=== PATIENT | female | born 1985 | race Two or more races ===

== ENCOUNTER → 2018-04-07 | Outpatient (CLI) | payer MEDICAID ==
--- NOTE | 2018-04-07 13:12 | RADIOLOGY IMAGING REPORT ---
[place] [facility] [place] NAME: Leigh Wesley : 1985 MR: [id number] V: [id number] EXAM DATE: ORDERING PHYSICIAN: JASSON CUBA TECHNOLOGIST: Location: [facility] Patient: Leigh Wesley : 1985 Visit/Account:[id number] Date of Sevice: 04/07/2018 GALLBLADDER HISTORY: 37 weeks , right upper quadrant pain, elevated LFTs, nausea and vomiting, gestation al diabetes COMPARISON: None. FINDINGS: Gallbladder: Several tiny echogenic foci are seen within the gallbladder. These could represent tiny stones or sludge. There was a positive Lew sign by technologist notation. The gallbladder wall did not appear thickened and there is no evidence of pericholecystic fluid Liver: Diffuse increased echogenicity throughout liver which can be seen with fatty infiltration or o ther infiltrative process Common duct: Normal, 3.4 mm diameter. Pancreas: Obscured by bowel gas Right kidney: There is a mild right hydronephrosis. The right kidney measures 10 cm in length Upper abdominal aorta and IVC: Patent. Ascites: None visualized. IMPRESSION: Increased echogenicity throughout liver which can be seen with fatty infiltration or other infiltrati ve process Tiny echogenic foci within the gallbladder could represent tiny stones or sludge. There was a positi ve Lew sign by technologist notation. No evidence of biliary ductal dilatation or gallbladder wal l thickening. Mild right hydronephrosis Report Dictated By: Emily Lee MD at 04/07/2018 1:05 PM Report E-Signed By: Emily Lee MD at 04/07/2018 1:08 PM WSN:ILIA
== END ==
LOC: US 10:13
PROVIDERS: ATTEND Obstetrics & Gynecology
DX: K76.0 Fatty (change of) liver, not elsewhere classified (principal); R19.8 Other specified symptoms and signs involving the digestive system and abdomen; N13.30 Unspecified hydronephrosis
CPT/HCPCS: 76705

== ENCOUNTER 2018-04-19 19:25 | Inpatient (IN) | payer MEDICAID ==
[~2018-04-19] VITALS: Ht 175.3 cm; Wt 69.4 kg
[2018-04-19] MEDS ORDERED: fentaNYL CITR 100 MCG/2 ML AMP IVP PRN (19:30)
[2018-04-19] MEDS ORDERED: LIDOCAINE 1% LOCAL 300 MG/30ML INJ PRN (19:30)
[2018-04-19] MEDS ORDERED: LIDOCAINE/SOD BICARB 8.4% SYR SC PRN (19:30)
[2018-04-19] MEDS ORDERED: FAMOTIDINE(*) 20MG/50ML PREMIX 50 ML IVPB PRN (19:30)
[2018-04-19] MEDS ORDERED: METOCLOPRAMIDE 10 MG/2 ML SDV IVP PRN (19:30)
[2018-04-19] MEDS ORDERED: OXYTOCIN 30 UNIT/D5LR 500 ML 500 ML IV PRN (19:30)
[2018-04-19] MEDS ORDERED: cefOXitin/DEX(*) 2GM/50ML PREM 50 ML IVPB PRN (19:30)
[2018-04-19] MEDS ORDERED: FLUSH 10 ML SYR IVP PRN (19:30)
[2018-04-19] MEDS ORDERED: DLR(*) 1000 ML BAG 1,000 ML IV PRN (19:30)
[2018-04-19 19:36] VITALS: BP 127/97; Ht 175.3 cm; Wt 69.4 kg
[2018-04-19 20:26] LABS: PLATELET COUNT, AUTOMATED 107 K/uL (150-450)
[2018-04-19] MEDS: DINOPROSTONE 10 MG INSERT PV ONE ×2 (21:12→21:20)
[2018-04-20] VITALS (26 sets, daily range): BP systolic 101–137; BP diastolic 57–90
[2018-04-20] MEDS ORDERED: ZOLPIDEM TARTRATE 5 MG TAB PO PRN (00:20)
[2018-04-20] MEDS ORDERED: ACETAMINOPHEN 325 MG TAB PO PRN ×2 (01:55→17:35)
[2018-04-20] MEDS: LR(*) 1000 ML BAG 1,000 ML IV PRN ×3 (03:00→07:00)
[2018-04-20] MEDS ORDERED: ePHEDrine 25 MG/5 ML DISP.SYR IVP PRN (03:10)
[2018-04-20] MEDS ORDERED: BUPIVACAINE 0.5% INJ 30ML VIAL EPI PRN (03:10)
[2018-04-20] MEDS ORDERED: LIDO/EPI 2% MPF 1:200,000 20ML EPI PRN (03:10)
[2018-04-20] MEDS ORDERED: fentaNYL CITR 100 MCG/2 ML AMP IT PRN (03:10)
[2018-04-20] MEDS ORDERED: BUPIVACAINE 0.25% MPF INJ EPI PRN (03:10)
[2018-04-20] MEDS ORDERED: FENTANYL/ROPIVACAINE 100 ML BAG EPI PRN (03:10)
[2018-04-20] MEDS ORDERED: LIDOCAINE/PF 2% 200MG/10ML AMP 200 MG/10 ML AMPUL EPI PRN (03:10)
[2018-04-20] MEDS ORDERED: EPIDURAL KEYS XX PRN (03:15)
[2018-04-20] MEDS ORDERED: ONDANSETRON 4 MG/2 ML VIAL IVP PRN (04:00)
--- NOTE | 2018-04-20 04:22 | Anesthesia OB Pre-Anes Eval ---
History of Present Illness Anesthesia Start Date: Apr 20, 2018 Anesthesia Start Time: 03:30 OB Anesthesia Diagnosis: induction - medical Current Complication: diabetes, other (elevated liver enzymes) EDC: Apr 27, 2018 : 1 Para: 0 Pain Ratin Heart Tones: 131 Result Diagram: 04/19/18201404/19/182014 Height (Inches): 69 Weight (Pounds): 153 Past Medical History Medical History: other (hypothyroid) Surgical History: no surgical history Attended Childbirth Classes?: Yes Hx Anesthesia Reactions: No Hx Family Anesthesia Reaction: No Current Medications: pitocin Allergies: Coded Allergies: No Known Drug Allergies (Unverified , 04/19/18) Anesthesia OB ROS Neurological: No migraines/headaches, No seizures, No neuropathy, No other ENT: Other (poor dentition front teeth) Pulmonary: No asthma, No smoker (pks/day/yrs), No other Airway Class: ll Cardiovascular ROS: No edema, No arrhythmia, No other GI ROS: clear liquids Last Solids Date: Apr 19, 2018 Last Solids Time: 13:30 ROS: Other (elevated liver enzymes) Endocrine ROS: gestational diabetes Musculoskeletal ROS: No low back pain, No low back injury, No scoliosis, No other ASA Classification: 2 Assessment and Plan Anesthesia Plan: JENNY THOMSON CRNA Apr 20, 2018 04:22
--- NOTE | 2018-04-20 04:25 | Procedure Note ---
Anesthetic Placement Note Anesthesia Plan: CSE Permit for Anesthesia Signed: Yes Anesthesia Technique: Patient Sitting Anesthesia Prep: Chlorhexidine Interspace: L 3-4 Local Anesthetic: 1% Lidocaine Amount Local - cc's: 3 Anesthesia Needle: 17g Touhy/Schliff Anesthesia Attempts: 1 Loss of Resistance: Normal Saline Depth of EVANGELISTA (cm): 3.5 Epidural Needle Placement: No CSF, No Blood, No Parasthesia Intrathecal Needle: 27 Gauge Pencan Cerebral Spinal Fluid: Yes, Clear Catheter Insertion (cm): 5 Catheter Type: Perez - Spring Wound Epidural Dressing: Tegaderm, Tape Anesthesia Tray: Lot Number ([id number]), Expiration Date (05/24), Reference Number ([id number]) Anesthesia Medications: Intrathecal Dose: mcg Fentanyl (10), mg Marcaine MPF (2.5), Time (0344) Epidural Test Dose: 1.5 Lido/Epi (1:200,000), Dose - mL (3), Time (0347), Negative Epidural Infusion: 0.2% Ropivicaine, With Fentanyl 2mcg/ml, Start Time: (0404) Epidural Pump Setting: Bolus Dose - mL (8), Lockout - Minutes (30), Maintenance Rate - mL/hr (6), Maximum per Hour - mL (24) Complications: None JENNY JACOBS CRNA Apr 20, 2018 04:25
[2018-04-20 06:44] LABS: PLATELET COUNT, AUTOMATED 99 K/uL (150-450)
[2018-04-20] MEDS ORDERED: MAGNESIUM SUL* 4 GM/100 ML BAG 100 ML IVPB ONE (08:20)
[2018-04-20] MEDS ORDERED: CALCIUM GLUC 10% 100 MG/ML VL IVP ONE (08:20)
[2018-04-20] MEDS ORDERED: MAGNESIUM SULF 20 GM/500 ML IV 500 ML IV SCH (08:20)
--- NOTE | 2018-04-20 08:37 | History & Physical ---
History of Present Illness Age of Patient: 33 : 1 Para or TPAL: 0 EDC per LMP: Apr 27, 2018 Estimated Gestational Age: 39 Chief Complaint GDM History of Present Illness The patient is a 33 year old 1 para 0 admitted at 39 weeks estimated gestational age with an estimated date of delivery 04/27/18. Patient is admitted for induction for GD M at term with favorable cervix. No vaginal bleeding. Good movement and occasional contractions. She was evaluated for active labor. She had course complicated by GDM and elevations in liverfunctions with normal bile salts. Had mild elevation in blood pressure last PM with initial UA reported without protein. Denies PIH symptoms. Her record was reviewed. History Allergies: Coded Allergies: No Known Drug Allergies (Unverified , 04/19/18) Exam General Exam Vital Signs Vital Signs Date Time Temp Pulse Resp B/P (MAP) Pulse Ox O2 Delivery O2 Flow Rate FiO2 04/19/18 19:36 97.7 88 16 127/97 (107) 98 Room Air Cardiovascular: Regular Rate and Rhythm Respiratory: Clear to Auscultation Abdomen: Gravid - Non-Tender Extremities: No Edema Cervical Dialation: 10 Station: +2 Presentation: Vertex Fetus Heart Tones: 130 Heart Tone Variabilty: Moderate FHT Accelerations: 15X15 FHT Category: I Medical Decision Making Data Points Result Diagram: 04/20/18 0638 04/20/18 0638 Assessment and Plan Problems: (1) Pre-eclampsia during in third trimester, antepartum Assessment & Plan: noted proteinuria this am, will start magnesium for seizure prophylaxis with elevation in LFT and renal functions. PLTs low at 99 will follow for early HELLP syndrome. Will allow to push. Copies to: JASSON CUBA MD, JOHN MD Apr 20, 2018 08:37
--- NOTE | 2018-04-20 10:50 | OB Delivery Note ---
Delivery Note Vaginal Delivery Type: Spont. Vaginal Delivery Delivery Date: Apr 20, 2018 Delivery Time: 10:13 Estimated Gestational Age(wks): 39.0 Delivery Anesthesia: Epidural Sex: Female Infant Weight (gms): 3944 Apgars: 1 Minute (6), 5 Minute (8) Repair Needed: Laceration, 2nd Degree Estimated Blood Loss: 300 Delivery Complications: Nuchal Cord (x1) Notes: Pt was completely dilated at 0738 and started pushing shortly after I came on shift. Pushing effectively and brought baby to [facility] in KASSY position. Head delivered over second degree laceration. Nuchal cord x 1 noted and reduced. Anterior shoulder delivered spontaneously but posterior shoulder delivered with assistance. Placenta delivered intact and spontaneous. Repair with 2-0 chromic successful and without complication. Salary And Wage Administrator in Attendence: No Copies to: MARLENA DUMONT MD, TRAVIS MD Apr 20, 2018 10:50
[2018-04-20 10:53] LABS: INR 0.94
--- NOTE | 2018-04-20 11:02 | Anesthesia Progress Note ---
Assessment and Plan Anesthesia Plan: CSE Anesthesia Stop Day: Apr 20, 2018 Anesthesia Stop Time: 10:40 Epidural Catheter Removal: Removed by: (Plts up to 115k so Jackelin BAKER will remove cath) JENNY JACOBS CRNA Apr 20, 2018 11:02
[2018-04-20] MEDS ORDERED: GLYCERIN/WITCH HAZEL LEAF 1 PK TP PRN (17:35)
[2018-04-20] MEDS ORDERED: BENZOCAINE 20% 60 ML BTL TP PRN (17:35)
[2018-04-20] MEDS ORDERED: MISOPROSTOL 200 MCG TAB PO ONE ×2 (17:35)
[2018-04-20] MEDS ORDERED: LANOLIN OINT 7 GM TUBE TP PRN (17:35)
[2018-04-20] MEDS ORDERED: MAGNESIUM HYDROXIDE* 30ML UDCP PO PRN (17:35)
[2018-04-20] MEDS ORDERED: APAP/HYDROCODONE 325/5 TAB PO PRN (17:35)
[2018-04-20] MEDS ORDERED: HYDROCORTISONE 2.5% CR 30GM TB PR PRN (17:35)
[2018-04-20] MEDS: IBUPROFEN 800 MG TAB PO SCH (18:20)
[2018-04-20] MEDS ORDERED: CARBOPROST TROMETHAM 250MCG/ML IM ONLY ONE (18:35)
[2018-04-20 19:01] LABS: PLATELET COUNT, AUTOMATED 123 K/uL (150-450)
[2018-04-20] MEDS ORDERED: TRANEXAMIC AC 1000 MG/10ML SDV 1,000 MG in NS(*) 0.9% 50 ML BAG 50 ML IVPB ONE ×2 (19:10→19:20)
[2018-04-20] MEDS ORDERED: LR(*) 1000 ML BAG 1,000 ML ONE (19:14)
[2018-04-20] MEDS ORDERED: OXYTOCIN 10 UNIT/ML SDV ONE ×2 (19:14→20:01)
[2018-04-20] MEDS ORDERED: TRANEXAMIC AC 1000 MG/10ML SDV IVP ONE (19:15)
[2018-04-20 19:40] LABS: INR 0.93
[2018-04-20] MEDS ORDERED: DIPHENOX/ATROPINE 2.5-0.025MG PO PRN (19:45)
[2018-04-20] MEDS ORDERED: NS 0.9% IV ONE (19:50)
[2018-04-20] MEDS ORDERED: OXYTOCIN IV ONE (19:50)
[2018-04-20] MEDS ORDERED: NS(*) 0.9% 1000 ML BAG 1,000 ML ONE (20:01)
[2018-04-20] MEDS: MAGNESIUM SULF 20 GM/500 ML IV 500 ML IV SCH (20:05)
--- NOTE | 2018-04-20 20:50 | OB/GYN Progress Note ---
OB Subjective Progress Notes Subjective Called about heavier bleeding. Was assessed and found to have uterine atony while the weiss was not draining appropriately and later drained a large volume once corrected. There was a delay getting IVFs with Pitocin administered due to miscommunication of orders and this also contributed to excess bleeding. BP was trending down to 100/60 but urine output has been ample. Orders given for Cytotec 800 mcg PO and Pitocin 40 units in 1L LR. Another assessment made and another 650 ml EBL made. Magnesium now decreased to 1.5 gm/h and Tranexamic acid 1gm infused plus Hemabate 250 mcg IM. By my assessment, pt fatigued but easily responsive and appropriate for magnesium. Fundus palpates firm and 2 below the umbilicus. Scant bleeding noted with fundal massage. Pain: Mild OB Objective Physical Exam Vital Signs Date Time Temp Pulse Resp B/P (MAP) Pulse Ox O2 Delivery O2 Flow Rate FiO2 04/20/18 19:02 78 16 124/81 (95) 97 Room Air 04/20/18 18:44 97.7 Intake and Output 04/21/18 07:00 Intake Total 1700 ml Output Total 4255 ml Balance -2555 ml Intake IV Total 1700 ml Output Urine Total 3025 ml Estimated Blood Loss 650 ml Other 580 ml Respiratory: Clear to Auscultation Abdomen: Soft, Non-Tender, Non-Distended, Fundus Firm, Non-Tender : Other (perineal edema noted) Extremities: No Edema Integumentary: Skin Intact without Lesions or Rash Psychological: Alert & Oriented X3, Appropriate Mood & Affect Result Diagram: 04/20/180 04/20/181849 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 Will keep her TI at 150 ml/h and switch to NS as her serum Na is low. (2) care and examination immediately after delivery Assessment & Plan: I am confident in her laceration and repair and there was nothing above her second degree. (3) hemorrhage Assessment & Plan: Infusing Pitocin IV and uterotonics administered and working. Will continue to monitor over next 12-24 hours for equilibration and transfusion assessment. Coags normal. Problem Qualifiers (1) hemorrhage: hemorrhage type: unspecified Qualified Codes: O72.1 - Other immediate hemorrhage MARLENA DUMONT MD Apr 20, 2018 20:50
[2018-04-20] MEDS: DOCUSATE CALCIUM 240 MG CAP PO SCH (21:00)
[2018-04-21] VITALS (20 sets, daily range): BP systolic 108–136; BP diastolic 65–91
[2018-04-21] MEDS: IBUPROFEN 800 MG TAB PO SCH ×3 (01:09→18:02)
[2018-04-21 01:46] LABS: PLATELET COUNT, AUTOMATED 95 K/uL (150-450)
[2018-04-21] MEDS ORDERED: NS(*) 0.9% 1000 ML BAG 1,000 ML IV ONE (05:05)
[2018-04-21] MEDS ORDERED: LEVOTHYROXINE SOD 0.075 MG TAB ONE (05:48)
[2018-04-21] MEDS: LEVOTHYROXINE SOD 0.075 MG TAB PO SCH (06:11)
[2018-04-21] MEDS: MAGNESIUM SULF 20 GM/500 ML IV 500 ML IV SCH ×2 (06:42→20:21)
[2018-04-21] MEDS ORDERED: NS(*) 0.9% 1000 ML BAG 1,000 ML IV PRN (07:00)
--- NOTE | 2018-04-21 08:58 | OB/GYN Progress Note ---
OB Subjective Progress Notes Subjective Improved in bleeding but nurse called to report symptoms of blurry vision and headache. Pt has been feeling dizzy as well. Excellent UO still. GI: NEG Nausea Pain: Mild Neurological: Headache, Other (blurry vision) OB Objective Physical Exam Vital Signs Date Time Temp Pulse Resp B/P (MAP) Pulse Ox O2 Delivery O2 Flow Rate FiO2 04/21/18 08:20 98.3 72 16 136/87 04/21/18 06:00 99 Room Air Intake and Output 04/22/18 07:00 Intake Total 409 ml Balance 409 ml Intake IV Total 159 ml Blood Product 250 ml General Appearance: Alert/Awake/No Acute Distress Neurological: No Gross deficits Cardiovascular: Normal Rhythm & Peripheral Pulses, Regular Rate and Rhythm Respiratory: No Respiratory Distress, Clear to Auscultation Abdomen: Soft, Non-Tender, Non-Distended, Fundus Firm, Non-Tender : Other (perineal edema noted) Extremities: No Edema Integumentary: Skin Intact without Lesions or Rash Psychological: Alert & Oriented X3, Appropriate Mood & Affect Result Diagram: 04/21/185 04/21/18104 Assessment and Plan Problems: (1) Pre-eclampsia during in third trimester, antepartum Assessment & Plan: check labs again. Monitor for symptoms but resolving. (2) care and examination immediately after delivery (3) hemorrhage Assessment & Plan: Finishing 2 units PRBCs today for anemia symptomatic. Will ambulate more today and monitor for symptoms. Problem Qualifiers (1) hemorrhage: hemorrhage type: unspecified Qualified Codes: O72.1 - Other immediate hemorrhage MARLENA DUMONT MD Apr 21, 2018 08:58
[2018-04-21] MEDS: DOCUSATE CALCIUM 240 MG CAP PO SCH ×2 (09:00→23:28)
[2018-04-21] MEDS ORDERED: DIPHTH/TETANUS/ACEL. PERTUSSIS IM ONLY ONE (09:00)
--- NOTE | 2018-04-21 14:01 | Anesthesia Post Eval Note ---
Anesthesia Post Eval Note Vital Signs 04/21/18 12:19 Temp 97.8 Pulse 72 Resp 16 B/P (MAP) 126/77 (93) Pulse Ox 97 O2 Delivery Room Air Pt able to participate in Eval: Yes Cardiovascular Status: Satisfactory Respiratory Status: Satisfactory Pain Managment: Satisfactory PO Nausea/Vomiting: Satisfactory Temperature Management: Satisfactory Mental Status: Satisfactory, Alert, Oriented X3 Post-Op Hydration Status: Satisfactory, Tolerating PO Well Anesthesia Type: CSE Anesthesia Tolerance: pt still on bedrest and recieving PRBCs JENNY JACOBS CRNA Apr 21, 2018 14:01
[2018-04-21 14:03] LABS: PLATELET COUNT, AUTOMATED 120 K/uL (150-450)
[2018-04-21] MEDS ORDERED: LEVO75TA73 PO (14:08)
[2018-04-22] MEDS: IBUPROFEN 800 MG TAB PO SCH ×2 (01:36→09:53)
[2018-04-22] MEDS ORDERED: LEVOTHYROXINE SOD 0.075 MG TAB ONE (05:40)
[2018-04-22] MEDS: LEVOTHYROXINE SOD 0.075 MG TAB PO SCH (05:59)
[2018-04-22 06:05] VITALS: BP 129/72
--- NOTE | 2018-04-22 07:22 | OB/GYN Progress Note ---
OB Subjective Progress Notes Subjective Pain controlled, Tolerating diet and activity. Baby . Normal lochia. GI: NEG Nausea, NEG Vomiting : Voiding Well Pain: Mild OB Objective Physical Exam Vital Signs Date Time Temp Pulse Resp B/P (MAP) Pulse Ox O2 Delivery O2 Flow Rate FiO2 04/22/18 06:05 98.1 19 129/72 (91) Room Air 04/21/18 23:30 88 94 General Appearance: Alert/Awake/No Acute Distress Neurological: No Gross deficits Cardiovascular: Normal Rhythm & Peripheral Pulses, Regular Rate and Rhythm Respiratory: No Respiratory Distress, Clear to Auscultation Abdomen: Soft, Non-Tender, Non-Distended, Fundus Firm, Non-Tender : Other (perineal edema noted) Extremities: No Edema Integumentary: Skin Intact without Lesions or Rash Psychological: Alert & Oriented X3, Appropriate Mood & Affect Result Diagram: 04/21/18 1354 04/21/18 1354 Assessment and Plan Problems: (1) Pre-eclampsia during in third trimester, antepartum (2) care and examination immediately after delivery Assessment & Plan: Pain controlled, Tolerating diet and activity. Baby . Normal lochia. (3) hemorrhage Problem Qualifiers (1) hemorrhage: hemorrhage type: unspecified Qualified Codes: O72.1 - Other immediate hemorrhage JASSON CUBA MD Apr 22, 2018 07:22
[2018-04-22] MEDS ORDERED: HYDR2TAB4 PO (07:48)
[2018-04-22] MEDS ORDERED: IBUP800T37 PO (07:48)
--- NOTE | 2018-04-22 07:52 | OB/GYN Discharge Summary ---
Discharge Summary Reason for Hosp/Final Diag: (1) Pre-eclampsia during in third trimester, antepartum (2) care and examination immediately after delivery Hospital Course & Plan: IOL INITIALLY FOR GDM AT TERM WITH FAVORABLE CERVIX, WAS NOTED TO HAVE ELEVATED BP AND THEN SEEING SPILLING OF PROTEIN IN URINE WITH ELEVATED LFTS AND RENAL MARKERS WAS STARTED ON MAGNESIUM FOR SEIZURE PROPHYLAXIS. HAD SOME ATONY AND RECEIVED PRBCS. ON DAY 2, BP NORMAL LABS IMPROVING, Pain controlled, Tolerating diet and activity. Baby . Normal lochia. (3) hemorrhage Lates Vital Signs Vital Signs Date Time Temp Pulse Resp B/P (MAP) Pulse Ox O2 Delivery O2 Flow Rate FiO2 04/22/18 06:05 98.1 19 129/72 (91) Room Air 04/21/18 23:30 88 94 Weight (Pounds): 153 Result Diagram: 04/21/18 1354 04/21/18 1354 Condition: Improved Discharge: Home, Self Long Term Meds Active Scripts Ibuprofen (IBUPROFEN) 800 Mg Tablet, 1 TAB PO Q8H, #30 TAB 0 Refills Take with food every 8 hours. Prov:JASSON CUBA MD 04/22/18 Hydromorphone Hcl (HYDROMORPHONE HCL) 2 Mg Tablet, 2-4 MG PO Q4H for PAIN, #20 TAB 0 Refills Prov:JASSON CUBA MD 04/22/18 Reported Medications Levothyroxine Sodium (LEVOTHYROXINE SODIUM) 75 Mcg Tablet, 75 MCG PO QDAY, TAB 04/21/18 Follow up in: 6 wks PP or PO, 5-7 days (BP CHECK) Discharge Diet: As Tolerates Discharge Activity: Pelvic Rest Copies to: JASSON CUBA MD Problem Qualifiers (1) hemorrhage: hemorrhage type: unspecified Qualified Codes: O72.1 - Other immediate hemorrhage JASSON CUBA MD Apr 22, 2018 07:52
[2018-04-22 08:30] VITALS: BP 142/86
[2018-04-22] MEDS: DOCUSATE CALCIUM 240 MG CAP PO SCH (09:53)
--- NOTE | 2018-04-22 11:03 | OB/GYN Progress Note ---
OB Subjective Progress Notes Subjective Doing well. Pain minimal and bleeding light. Feels well. : Voiding Well Pain: Mild Neurological: No Headache OB Objective Physical Exam Vital Signs Date Time Temp Pulse Resp B/P (MAP) Pulse Ox O2 Delivery O2 Flow Rate FiO2 04/22/18 06:05 98.1 19 129/72 (91) Room Air 04/21/18 23:30 88 94 General Appearance: Alert/Awake/No Acute Distress Neurological: No Gross deficits Cardiovascular: Normal Rhythm & Peripheral Pulses, Regular Rate and Rhythm Respiratory: No Respiratory Distress, Clear to Auscultation Abdomen: Soft, Non-Tender, Non-Distended, Fundus Firm, Non-Tender : Other (perineal edema noted) Extremities: No Edema Integumentary: Skin Intact without Lesions or Rash Psychological: Alert & Oriented X3, Appropriate Mood & Affect Result Diagram: 04/21/18 1354 04/21/18 1354 Assessment 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 Discussed preeclampsia symptoms and will call if feels poorly. (2) care and examination immediately after delivery (3) hemorrhage Problem Qualifiers (1) hemorrhage: hemorrhage type: unspecified Qualified Codes: O72.1 - Other immediate hemorrhage MARLENA DUMNOT MD Apr 22, 2018 11:03
--- NOTE | 2018-04-22 11:07 | OB/GYN Discharge Summary ---
Discharge Summary Reason for Hosp/Final Diag: (1) Pre-eclampsia during in third trimester, antepartum Hospital Course & Plan: Early HELLP syndrome. Prophylaxis with magnesium during labor. No abnormal pressures. (2) care and examination immediately after delivery (3) hemorrhage Hospital Course & Plan: Currently labs stable. Lates Vital Signs Vital Signs Date Time Temp Pulse Resp B/P (MAP) Pulse Ox O2 Delivery O2 Flow Rate FiO2 04/22/18 06:05 98.1 19 129/72 (91) Room Air 04/21/18 23:30 88 94 Weight (Pounds): 153 Result Diagram: 04/21/18 1354 04/21/18 1354 Condition: Improved Discharge: Home, Self Long Term Meds Active Scripts Ibuprofen (IBUPROFEN) 800 Mg Tablet, 1 TAB PO Q8H, #30 TAB 0 Refills Take with food every 8 hours. Prov:JASSON CUBA MD 04/22/18 Hydromorphone Hcl (HYDROMORPHONE HCL) 2 Mg Tablet, 2-4 MG PO Q4H for PAIN, #20 TAB 0 Refills Prov:JASSON CUBA MD 04/22/18 Reported Medications Levothyroxine Sodium (LEVOTHYROXINE SODIUM) 75 Mcg Tablet, 75 MCG PO QDAY, TAB 04/21/18 Follow up Referrals: [facility] - In 6 Weeks @ [facility] with Ishmael Young Md Follow up with: Dr. Young [phone] Follow up in: 6 wks PP or PO, 5-7 days (BP CHECK) Discharge Diet: As Tolerates Discharge Activity: No Heavy Lifting x 6 wks, No Heavy Lifting > 10lb, Pelvic Rest Copies to: ISHMAEL YOUNG MD Problem Qualifiers (1) hemorrhage: hemorrhage type: unspecified Qualified Codes: O72.1 - Other immediate hemorrhage ISHMAEL YOUNG MD Apr 22, 2018 11:06
[2018-04-22 11:45] VITALS: BP 118/77
== END 2018-04-22 12:45 | disposition home or self-care (01) | DRG 774 ==
LOC: OB 19:25
PROVIDERS: ADMIT Obstetrics & Gynecology; ATTEND Obstetrics & Gynecology
PROC: 10E0XZZ Delivery of Products of Conception, External Approach (ICD-10-PCS; principal; 2018-04-19)
PROC: 0KQM0ZZ Repair Perineum Muscle, Open Approach (ICD-10-PCS; 2018-04-19)
PROC: 3E033VJ Introduction of Other Hormone into Peripheral Vein, Percutaneous Approach (ICD-10-PCS; 2018-04-19)
PROC: 30233P1 Transfusion of Nonautologous Frozen Red Cells into Peripheral Vein, Percutaneous Approach (ICD-10-PCS; 2018-04-21)
DX: O24.429 Gestational diabetes mellitus in childbirth, unspecified control (principal); O72.2 Delayed and secondary postpartum hemorrhage; O14.04 Mild to moderate pre-eclampsia, complicating childbirth; O69.81X0 Labor and delivery complicated by cord around neck, without compression, not applicable or unspecified; O90.81 Anemia of the puerperium; D64.9 Anemia, unspecified; O70.1 Second degree perineal laceration during delivery; O14.25 HELLP syndrome, complicating the puerperium; E03.9 Hypothyroidism, unspecified; Z3A.39 39 weeks gestation of pregnancy; Z37.0 Single live birth
CPT/HCPCS: 36415; 36416; 81001; 82040; 82247; 82310; 82374; 82435; 82565; 82570; 82947; 82948; 83615; 83735; 84075; 84132; 84155; 84156; 84295; 84450; 84460; 84520; 84550; 85025; 85049; 85379; 85384; 85610; 85730; 86850; 86900; 86901; 86920; J2405; J2590; J3475; J7030; J7050; J7120; P9016; S0020

== ENCOUNTER 2018-04-23 22:25 | Emergency (ER) | payer MEDICAID ==
[2018-04-19 19:36] VITALS: Wt 69.4 kg
[~2018-04-23 22:25] MED LIST: HYDR2TAB4 PO; IBUP800T37 PO; LEVO75TA73 PO
--- NOTE | 2018-04-23 22:32 | ER Report ---
History and Physical Time Seen By MD: 22:31 HPI/ROS CHIEF COMPLAINT: vomiting and chest pain HISTORY OF PRESENT ILLNESS: This is a 33 year old female. She is from delivery by spontaneous vaginal delivery of a term on 04/20/18. She had complications of pre-eclampsia and early HELLP syndrome, treated with magnesium. Had post- hemorrhage. Discharged yesterday. Had a vaginal delivery, with epidural, and with a 2nd degree laceration repair. She is having some breast engorgement with mild coming in and infant having some trouble latching. She is experiencing some pain the chest, seems to be both in the breast and midline. Midline seems be associated with when she vomits. She is a little short of breath at times. She has nausea at this time as well. Denies any dysuria at this time, but has discomfort in the area as expected from her history. No fevers or chills. No history of heart problems. No history of lung problems, blood clots in the lungs or DVT. Allergies: Coded Allergies: No Known Drug Allergies (Unverified , 04/19/18) Home Meds Active Scripts Ondansetron (ZOFRAN ODT) 4 Mg Tab.rapdis, 4 MG PO Q6H Y for NAUSEA/VOMITING, # 20 TAB.NICOLE 0 Refills Prov:LAURA BONNER MD 04/24/18 Nitrofurantoin Monohyd/M-Cryst (MACROBID 100 MG CAPSULE) 100 Mg Capsule, 100 MG PO BID, #10 CAPSULE 0 Refills Prov:LAURA BONNER MD 04/24/18 Ondansetron (ZOFRAN ODT) 4 Mg Tab.rapdis, 4 MG PO Q6H Y for NAUSEA/VOMITING, # 20 TAB.NICOLE 0 Refills Prov:LAURA BONNER MD 04/24/18 Ibuprofen (IBUPROFEN) 800 Mg Tablet, 1 TAB PO Q8H, #30 TAB 0 Refills Take with food every 8 hours. Prov:JASSON CUBA MD 04/22/18 Reported Medications Levothyroxine Sodium (LEVOTHYROXINE SODIUM) 75 Mcg Tablet, 75 MCG PO QDAY, TAB 04/21/18 Discontinued Scripts Hydromorphone Hcl (HYDROMORPHONE HCL) 2 Mg Tablet, 2-4 MG PO Q4H for PAIN, #20 TAB 0 Refills Prov:JASSON CUBA MD 04/22/18 Reviewed Nurses Notes: Yes Hx Smoking: No Smoking Status: Never Smoker Exposure to Second Hand Smoke?: No Constitutional Vital Sign - Last 24 Hours 04/23/18 04/23/18 04/23/18 04/23/18 22:36 22:37 22:40 22:51 Pulse 79 76 Resp 16 15 B/P (MAP) 142/103 (116) 142/103 139/92 (108) Pulse Ox 96 96 O2 Delivery Room Air 04/23/18 04/23/18 04/23/18 04/23/18 22:55 23:00 23:10 23:25 Pulse 85 83 83 Resp 20 19 17 B/P (MAP) 140/92 (108) Pulse Ox 95 96 96 04/23/18 04/23/18 04/23/18 04/24/18 23:30 23:45 23:50 00:00 Temp 97.9 Pulse ??? 90 B/P (MAP) ???/??? (1665) ???/??? (1665) Pulse Ox 98 04/24/18 04/24/18 04/24/18 04/24/18 00:03 00:15 00:30 00:45 Temp 98.0 Pulse ? B/P (MAP) ???/??? (1665) 04/24/18 01:00 Pulse ??? Physical Exam General Appearance: The patient is alert. No acute distress. Non-toxic in appearance. Eyes: Pupils are equal, round. No pallor, injection or icterus. ENT: Mucous membranes are moist. Normal oral mucosa. Posterior oropharynx is normal. Neck: Supple and non tender. Respiratory: Lungs are clear to auscultation. Cardiovascular: Regular rate and rhythm. No murmurs, gallops or rubs. Normal capillary refill. No edema. Gastrointestinal: Abdomen is soft, some tenderness in the epigastric area. Nondistended. Normal active bowel sounds. Neurological: Alert and oriented x3. Skin: Warm and dry. DIFFERENTIAL DIAGNOSIS: After history and physical exam, differential diagnosis was considered for a patient with chest pain and vomiting including but not limited to pain associated with the vomiting and esophageal spasm, but would also need to consider myocardial ischemia, pulmonary embolus, chest wall pain, pleural inflammation and pulmonary infectious causes. Medical Decision Making Data Points Result Diagram: 04/23/18223904/23/182239 Laboratory Hematology Test 04/23/18 22:40 04/23/18 23:30 Red Blood Count 4.09 M/uL (4.17-5.56) Mean Corpuscular Volume 85.4 fL (80.0-96.0) Mean Corpuscular Hemoglobin 29.4 pg (26.0-33.0) Mean Corpuscular Hemoglobin Concent 34.5 g/dL (32.0-36.0) Red Cell Distribution Width 14.7 % (11.5-14.5) Mean Platelet Volume 8.9 fL (7.2-11.1) Neutrophils (%) (Auto) 75.5 % (39.4-72.5) Lymphocytes (%) (Auto) 17.8 % (17.6-49.6) Monocytes (%) (Auto) 5.0 % (4.1-12.4) Eosinophils (%) (Auto) 0.9 % (0.4-6.7) Basophils (%) (Auto) 0.8 % (0.3-1.4) Nucleated RBC Relative Count (auto) 0.3 /100WBC Neutrophils # (Auto) 8.0 K/uL (2.0-7.4) Lymphocytes # (Auto) 1.9 K/uL (1.3-3.6) Monocytes # (Auto) 0.5 K/uL (0.3-1.0) Eosinophils # (Auto) 0.1 K/uL (0.0-0.5) Basophils # (Auto) 0.1 K/uL (0.0-0.1) Nucleated RBC Absolute Count (auto) 0.03 K/uL D-Dimer Quantitative (PE/DVT) 2.06 ug/ml (0-0.50) Sodium Level 137 mmol/L (137-145) Potassium Level 3.8 mmol/L (3.5-5.0) Chloride Level 102 mmol/L (98-107) Carbon Dioxide Level 27 mmol/L (22-31) Blood Urea Nitrogen 11 mg/dl (7-18) Creatinine 0.90 mg/dl (0.52-1.04) Glomerular Filtration Rate Calc > 60.0 Random Glucose 104 mg/dl (75-110) Calcium Level 9.8 mg/dl (8.4-10.2) Total Bilirubin 0.2 mg/dl (0.2-1.3) Aspartate Amino Transf (AST/SGOT) 35 U/L (0-35) Alanine Aminotransferase (ALT/SGPT) 39 U/L (0-56) Alkaline Phosphatase 139 U/L (0-126) Total Protein 6.3 g/dl (6.3-8.2) Albumin 3.5 g/dl (3.5-5.0) Urine Color Clear Urine Clarity Clear Urine pH 6.0 pH (4.8-9.5) Urine Specific [place] 1.002 Urine Protein Negative mg/dL (NEGATIVE) Urine Glucose (UA) Negative mg/dL (NEGATIVE) Urine Ketones Negative mg/dL (NEGATIVE) Urine Blood Large (NEGATIVE) Urine Nitrite Negative (NEGATIVE) Urine Bilirubin Negative (NEGATIVE) Urine Urobilinogen Negative mg/dL (0.2-1.9) Urine Leukocyte Esterase Moderate (NEGATIVE) Urine RBC 1 /HPF (0-2/HPF) Urine WBC 46 /HPF (0-5/HPF) Urine Squamous Epithelial Cells None /LPF (</=FEW) Urine Bacteria Few /HPF (NONE-FEW) Urine Mucus None /HPF (NONE-FEW) Chemistry Test 04/23/18 22:40 04/23/18 23:30 White Blood Count 10.6 k/uL (4.5-11.0) Red Blood Count 4.09 M/uL (4.17-5.56) Hemoglobin 12.0 g/dL (12.0-16.0) Hematocrit 34.9 % (34.0-47.0) Mean Corpuscular Volume 85.4 fL (80.0-96.0) Mean Corpuscular Hemoglobin 29.4 pg (26.0-33.0) Mean Corpuscular Hemoglobin Concent 34.5 g/dL (32.0-36.0) Red Cell Distribution Width 14.7 % (11.5-14.5) Platelet Count 147 K/uL (150-450) Mean Platelet Volume 8.9 fL (7.2-11.1) Neutrophils (%) (Auto) 75.5 % (39.4-72.5) Lymphocytes (%) (Auto) 17.8 % (17.6-49.6) Monocytes (%) (Auto) 5.0 % (4.1-12.4) Eosinophils (%) (Auto) 0.9 % (0.4-6.7) Basophils (%) (Auto) 0.8 % (0.3-1.4) Nucleated RBC Relative Count (auto) 0.3 /100WBC Neutrophils # (Auto) 8.0 K/uL (2.0-7.4) Lymphocytes # (Auto) 1.9 K/uL (1.3-3.6) Monocytes # (Auto) 0.5 K/uL (0.3-1.0) Eosinophils # (Auto) 0.1 K/uL (0.0-0.5) Basophils # (Auto) 0.1 K/uL (0.0-0.1) Nucleated RBC Absolute Count (auto) 0.03 K/uL D-Dimer Quantitative (PE/DVT) 2.06 ug/ml (0-0.50) Glomerular Filtration Rate Calc > 60.0 Calcium Level 9.8 mg/dl (8.4-10.2) Total Bilirubin 0.2 mg/dl (0.2-1.3) Aspartate Amino Transf (AST/SGOT) 35 U/L (0-35) Alanine Aminotransferase (ALT/SGPT) 39 U/L (0-56) Alkaline Phosphatase 139 U/L (0-126) Total Protein 6.3 g/dl (6.3-8.2) Albumin 3.5 g/dl (3.5-5.0) Urine Color Clear Urine Clarity Clear Urine pH 6.0 pH (4.8-9.5) Urine Specific [place] 1.002 Urine Protein Negative mg/dL (NEGATIVE) Urine Glucose (UA) Negative mg/dL (NEGATIVE) Urine Ketones Negative mg/dL (NEGATIVE) Urine Blood Large (NEGATIVE) Urine Nitrite Negative (NEGATIVE) Urine Bilirubin Negative (NEGATIVE) Urine Urobilinogen Negative mg/dL (0.2-1.9) Urine Leukocyte Esterase Moderate (NEGATIVE) Urine RBC 1 /HPF (0-2/HPF) Urine WBC 46 /HPF (0-5/HPF) Urine Squamous Epithelial Cells None /LPF (</=FEW) Urine Bacteria Few /HPF (NONE-FEW) Urine Mucus None /HPF (NONE-FEW) Coagulation Test 04/23/18 22:40 D-Dimer Quantitative (PE/DVT) 2.06 ug/ml Urinalysis Test 04/23/18 23:30 Urine Color Clear Urine Clarity Clear Urine pH 6.0 pH (4.8-9.5) Urine Specific [place] 1.002 Urine Protein Negative mg/dL (NEGATIVE) Urine Glucose (UA) Negative mg/dL (NEGATIVE) Urine Ketones Negative mg/dL (NEGATIVE) Urine Blood Large (NEGATIVE) Urine Nitrite Negative (NEGATIVE) Urine Bilirubin Negative (NEGATIVE) Urine Urobilinogen Negative mg/dL (0.2-1.9) Urine Leukocyte Esterase Moderate (NEGATIVE) Urine RBC 1 /HPF (0-2/HPF) Urine WBC 46 /HPF (0-5/HPF) Urine Squamous Epithelial Cells None /LPF (</=FEW) Urine Bacteria Few /HPF (NONE-FEW) Urine Mucus None /HPF (NONE-FEW) EKG/Imaging EKG Interpretation 12 lead EKG: Rhythm: normal sinus rhythm, rate 80 Reading: normal QRS: normal ST segments: normal Imaging Initially ordered a chest x-ray, then switch to CT angiogram to rule out PE, however after discussion with the patient and her they would prefer not to do the imaging at this time. ED Course/Re-evaluation Clinical Indication for ER IV: Hydration, IV Access ED Course After my initial evaluation, the patient was given a liter of normal saline and Zofran 4 mg IV. Labs were obtained. EKG negative as noted. Labs did show that her platelets were slightly low but the rest of her labs were unremarkable. Normal liver function tests and renal function. Urinalysis did show some increased white cells and a little bit of blood and one red cell on microscopic. We did send a culture and I did start her on Macrobid. Her d-dimer was elevated and I talked to her about the possibility of blood clots in the lungs and the risk with . At this point, she was feeling a lot better after the Zofran and fluids. She thinks her pain is mainly going to be due to the vomiting and the breast engorgement and would prefer not to do any imaging at this time, and would like to watch symptoms. They did understand the serious nature of a blood clot in the lungs, and the bad consequences that could happen if this was not found and treated including worsening symptoms or even . They will follow-up with Dr. Young as planned. Decision to Disposition Date: Apr 24, 2018 Decision to Disposition Time: 00:19 Depart Departure Latest Vital Signs Vital Signs Date Time Temp Pulse Resp B/P (MAP) Pulse Ox O2 Delivery O2 Flow Rate FiO2 04/24/18 01:00 ??? 04/24/18 00:30 ???/??? (1665) 04/24/18 00:03 98.0 04/23/18 23:45 98 04/23/18 23:25 17 04/23/18 22:37 Room Air Impression: Primary Impression: Vomiting Condition: Improved Disposition: HOME OR SELF-CARE New Scripts Ondansetron (ZOFRAN ODT) 4 Mg Tab.rapdis 4 MG PO Q6H Y for NAUSEA/VOMITING, #20 TAB.NICOLE 0 Refills Prov: LAURA BONNER MD 04/24/18 Nitrofurantoin Monohyd/M-Cryst (MACROBID 100 MG CAPSULE) 100 Mg Capsule 100 MG PO BID, #10 CAPSULE 0 Refills Prov: LAURA BONNER MD 04/24/18 Ondansetron (ZOFRAN ODT) 4 Mg Tab.rapdis 4 MG PO Q6H Y for NAUSEA/VOMITING, #20 TAB.NICOLE 0 Refills Prov: LAURA BONNER MD 04/24/18 Patient Instructions: Acute Nausea and Vomiting (ED) Additional Instructions: Rest and increase fluid intake. Take Zofran 4mg, one every 4 hours as needed for nausea or vomiting. We are running a culture on your urine for possible urinary tract infection. Take the antibiotic Macrobid 100mg twice a day and follow-up with Dr. Young as planned. Problem Qualifiers Primary Impression: Vomiting Vomiting type: unspecified Vomiting Intractability: non-intractable Nausea presence: with nausea Qualified Codes: R11.2 - Nausea with vomiting, unspecified LAURA BONNER MD Apr 23, 2018 22:32
[2018-04-23] MEDS ORDERED: NS(*) 0.9% 1000 ML BAG 1,000 ML IV ONE (22:42)
[2018-04-23] MEDS ORDERED: ONDANSETRON 4 MG/2 ML VIAL IVP ONE (22:45)
[2018-04-23 22:48] LABS: PLATELET COUNT, AUTOMATED 147 K/uL (150-450)
--- NOTE | 2018-04-23 23:12 | EKG ---
FACILITY: [facility] PATIENT NAME: ADAM CURRY : [id number] MR: [id number] V: [id number] EXAM DATE: ORDERING PHYSICIAN: LAURA BONNER TECHNOLOGIST: ASHLEE Castillo Reason : CHEST PAIN Blood Pressure : / mmHG Vent. Rate : 080 BPM Atrial Rate : 080 BPM P-R Int : 148 ms QRS Dur : 070 ms QT Int : 358 ms P-R-T Axes : 017 056 046 degrees QTc Int : 412 ms Normal sinus rhythm Normal ECG No previous ECGs available Confirmed by EYAL KULKARNI ([id number]) on 04/24/2018 7:34:44 AM Referred By: Confirmed By:EYAL KULKARNI
[2018-04-23] MEDS ORDERED: NS 0.9% 25 ML BAG 0 ML ONE (23:18)
[2018-04-23] MEDS ORDERED: IOPAMIDOL 76% 100 ML INFUS BTL 0 ML ONE (23:18)
[2018-04-23] MEDS ORDERED: IBUPROFEN 800 MG TAB PO ONE (23:45)
[2018-04-24] MEDS ORDERED: ONDA4TAB PO ×2 (00:20→00:25)
[2018-04-24] MEDS ORDERED: ONDANSETRON 4 MG ODT TH SL ONE (00:25)
[2018-04-24] MEDS ORDERED: NITROFURANTOIN MONO 100 MG PO ONE (00:25)
[2018-04-24] MEDS ORDERED: NITR-105 PO (00:25)
== END 2018-04-24 00:30 | disposition home or self-care (01) ==
LOC: ER 22:40
DX: R11.2 Nausea with vomiting, unspecified (principal); A49.8 Other bacterial infections of unspecified site
CPT/HCPCS: 81001; 85025; 85379; 87077; 87088; 87186; 93005; 96361; 96374; 99283; J2405; J7030; S0119; 82040; 82247; 82310; 82374; 82435; 82565; 82947; 84075; 84132; 84155; 84295; 84450; 84460; 84520; Q9967